=== PATIENT | male | born 1970 | race African-American/Black ===

== ENCOUNTER 2019-09-06 12:00 | Emergency (ER) | payer OTHER ==
[~2019-09-06] VITALS: Ht 180.3 cm; Wt 95.5 kg
[2019-09-06] MEDS ORDERED: IBUPROFEN 800 MG TABLET PO ONE (13:30)
[2019-09-06 15:22] VITALS: BP 138/93
== END 2019-09-06 15:36 | disposition home or self-care (01) ==
LOC: EMS 12:05
DX: S63.591A Other specified sprain of right wrist, initial encounter (principal); S60.221A Contusion of right hand, initial encounter; W22.8XXA Striking against or struck by other objects, initial encounter; Y93.67 Activity, basketball; Y92.89 Other specified places as the place of occurrence of the external cause; Y99.8 Other external cause status